=== PATIENT | female | born 2000 | race Caucasian/White ===

== ENCOUNTER 2019-03-16 16:50 | Emergency (ER) | payer MEDICAID ==
[2019-03-16 16:55] VITALS: BP 123/74
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
== END 2019-03-16 17:16 | disposition home or self-care (01) ==
LOC: ER 16:50
DX: S01.81XD Laceration without foreign body of other part of head, subsequent encounter (principal); X58.XXXD Exposure to other specified factors, subsequent encounter